=== PATIENT | male | born 1935 | race Caucasian/White ===

== ENCOUNTER 2023-03-25 07:09 | Day surgery (SDC) | payer OTHER ==
[2023-03-24 12:00] VITALS: BMI 26.4
[2023-03-25] MEDS ORDERED: Metoprolol Tartrate 5 MG/5 ML VIAL ONE (08:26)
[2023-03-25] MEDS ORDERED: PROPOFOL 20 ML ONE (09:16)
[2023-03-25] MEDS ORDERED: Lidocaine 2% MPF 10 ML AMP (For Epidural Use) ONE (09:16)
== END 2023-03-25 10:24 | disposition home or self-care (01) ==
LOC: CSHSDC 07:09
PROVIDERS: ATTEND Internal Medicine Gastroenterology
PROC: 0DJD8ZZ Inspection of Lower Intestinal Tract, Via Natural or Artificial Opening Endoscopic (ICD-10-PCS; principal; 2023-03-25)
DX: Z12.11 Encounter for screening for malignant neoplasm of colon (principal); K64.8 Other hemorrhoids; I48.91 Unspecified atrial fibrillation; E11.9 Type 2 diabetes mellitus without complications; K21.9 Gastro-esophageal reflux disease without esophagitis; Z86.010 Personal history of colon polyps; Z85.038 Personal history of other malignant neoplasm of large intestine; Z95.0 Presence of cardiac pacemaker; Z88.8 Allergy status to other drugs, medicaments and biological substances; Z88.2 Allergy status to sulfonamides; Z79.84 Long term (current) use of oral hypoglycemic drugs; Z79.899 Other long term (current) drug therapy; Z79.01 Long term (current) use of anticoagulants
CPT/HCPCS: J2704